=== PATIENT | female | born 1970 | race Caucasian/White ===

== ENCOUNTER 2018-06-20 12:28 | Emergency (ER) | payer MEDICARE ==
[2018-06-20 13:33] VITALS: BP 124/66
--- NOTE | 2018-06-20 14:07 | UC ---
Throat Pain/Nasal Hiro HPI - HPI Summary HPI Summary: 48-year-old woman here with a complaint of sinus pressure and runny nose sore throat and fatigue. She's been having these symptoms for more than a week. She feels like she needs to sleep all time. Denies any chest congestion. She has had some foul-smelling urine. No abdominal pain. - History of Current Complaint Chief Complaint: UCRespiratory Stated Complaint: SORE THROAT FEVER FATIGUE CONGESTION Time Seen by Provider: 06/20/18 13:50 Pain Intensity: 9 - Allergies/Home Medications Allergies/Adverse Reactions: Allergies Allergy/AdvReac Type Severity Reaction Status Date / Time No Known Allergies Allergy Verified 06/20/18 13:29 Home Medications: Home Medications NK [No Home Medications Reported] 06/20/18 [History Confirmed 06/20/18] PMH/Surg Hx/FS Hx/Imm Hx Previously Healthy: Yes - KIDNEY STONES Other Respiratory History: NO COPD - Surgical History Surgical History: Yes Surgery Procedure, Year, and Place: hysterectomy. - Family History Known Family History: Positive: Cardiac Disease Negative: Diabetes - Social History Alcohol Use: Occasionally Substance Use Type: Marijuana Substance Use Comment - Amount & Last Used: socially Smoking Status (MU): Heavy Every Day Tobacco Smoker Amount Used/How Often: 1 PPD Review of Systems Constitutional: Chills, Fatigue Skin: Negative Eyes: Negative ENT: Sore Throat, Nasal Discharge, Sinus Congestion, Sinus Pain/Tenderness Respiratory: Negative Cardiovascular: Negative Gastrointestinal: Negative Genitourinary: Other - URINE SMELLS BAD Motor: Negative Neurovascular: Negative Musculoskeletal: Negative Neurological: Negative Psychological: Negative Is Patient Immunocompromised?: No All Other Systems Reviewed And Are Negative: Yes Physical Exam Triage Information Reviewed: Yes Appearance: No Pain Distress, Well-Nourished, Ill-Appearing - MILD Vital Signs: Initial Vital Signs Temp 99.4 F 06/20/18 13:27 Pulse 73 06/20/18 13:27 Resp 15 06/20/18 13:27 BP 124/66 06/20/18 13:27 Pulse Ox 98 06/20/18 13:27 Vital Signs Reviewed: Yes Eye Exam: Normal Eyes: Positive: Conjunctiva Clear ENT: Positive: Pharyngeal erythema, Nasal congestion, Nasal drainage, TMs normal Neck exam: Normal Respiratory: Positive: Lungs clear, Normal breath sounds, No respiratory distress Cardiovascular: Positive: RRR Abdominal Exam: Normal Abdomen Description: Positive: Nontender, Soft. Negative: CVA Tenderness (R), CVA Tenderness (L) Bowel Sounds: Positive: Present Musculoskeletal Exam: Normal Musculoskeletal: Positive: Strength Intact Neurological Exam: Normal Neurological: Positive: Alert Psychological Exam: Normal Psychological: Positive: Normal Response To Family Skin Exam: Normal Throat Pain/Nasal Course/Dx - Differential Dx/Diagnosis Provider Diagnoses: SINUSITIS. UTI Discharge - Sign-Out/Discharge Documenting (check all that apply): Patient Departure All imaging exams completed and their final reports reviewed: No Studies - Discharge Plan Condition: Stable Disposition: HOME Patient Education Materials: Sinusitis (ED), Urinary Tract Infection in Women ( ED) Forms: *Work Release Referrals: [facility] [Outside] Additional Instructions: FOLLOW UP WITH YOUR DOCTOR IF NOT COMPLETELY IMPROVED. GET RECHECKED FOR ANY WORSENING OF YOUR CONDITION OR QUESTIONS OR CONCERNS. - Billing Disposition and Condition Condition: STABLE Disposition: Home - Attestation Statements Document Initiated by Scribe: No
== END 2018-06-20 14:13 | disposition home or self-care (01) ==
LOC: UCCORT 12:28
DX: J32.9 Chronic sinusitis, unspecified (principal); N39.0 Urinary tract infection, site not specified; A49.9 Bacterial infection, unspecified; F17.210 Nicotine dependence, cigarettes, uncomplicated
CPT/HCPCS: 81003; 87077; 87086; 87186; 99202; G0463

== ENCOUNTER 2019-06-07 13:29 | Emergency (ER) | payer MEDICARE ==
[2019-06-07 13:53] VITALS: BP 134/87
--- NOTE | 2019-06-07 14:21 | ED ---
Throat Pain/Nasal Congestion - HPI Summary HPI Summary: 49 yr old female with the complaint of sinus pressure, post nasal drip, yellow nasal drainage. Frontal and maxillary sinus pain. She has had fever. She is a smoker. She states she has had prior sinus infections. - History of Current Complaint Chief Complaint: UCGeneralIllness Time Seen by Provider: 06/07/19 14:13 - Allergies/Home Medications Allergies/Adverse Reactions: Allergies Allergy/AdvReac Type Severity Reaction Status Date / Time No Known Allergies Allergy Verified 06/07/19 13:50 Home Medications: Home Medications Ibuprofen TAB* [Motrin TAB* 800 MG] 800 mg PO ONCE 06/07/19 [History Confirmed 06/07/19] PMH/Surg Hx/FS Hx/Imm Hx - Surgical History Surgery Procedure, Year, and Place: hysterectomy. Infectious Disease History: No Infectious Disease History: Denies: Traveled Outside the [place] in Last 30 Days - Family History Known Family History: Positive: Cardiac Disease Negative: Diabetes - Social History Occupation: Employed Full-time Alcohol Use: Occasionally Substance Use Type: Reports: None Substance Use Comment - Amount & Last Used: socially Smoking Status (MU): Heavy Every Day Tobacco Smoker Type: Cigarettes Amount Used/How Often: 3/4 PPD Review of Systems Constitutional: Negative Positive: Nasal Discharge, Other - sinus pain Positive: Cough All Other Systems Reviewed And Are Negative: Yes Physical Exam Triage Information Reviewed: Yes Vital Signs On Initial Exam: Initial Vitals Temp Pulse Resp BP Pulse Ox 99.4 F 71 14 134/87 99 06/07/19 13:50 06/07/19 13:50 06/07/19 13:50 06/07/19 13:50 06/07/19 13:50 Vital Signs Reviewed: Yes Appearance: Positive: Well-Appearing, No Pain Distress Skin: Positive: Warm, Skin Color Reflects Adequate Perfusion Eyes: Positive: EOMI ENT: Positive: Pharyngeal erythema, Nasal congestion, Nasal drainage, TMs normal , Sinus tenderness Neck: Positive: Nontender Respiratory/Lung Sounds: Positive: Clear to Auscultation, Breath Sounds Present Cardiovascular: Positive: RRR. Negative: Murmur Abdomen Description: Negative: Distended Musculoskeletal: Positive: Strength/ROM Intact Neurological: Positive: Sensory/Motor Intact, Alert, Oriented to Person Place, Time, CN Intact II-III, Normal Gait, Speech Normal Psychiatric: Positive: Normal Diagnostics - Vital Signs Vital Signs Temp Pulse Resp BP Pulse Ox 06/07/19 13:50 99.4 F 71 14 134/87 99 - Laboratory Lab Statement: Any lab studies that have been ordered have been reviewed, and results considered in the medical decision making process. EENT Course/Dx - Course Course Of Treatment: 49 yr old with sinusitis. Rx augmentin - Diagnoses Provider Diagnoses: Bacterial sinusitis Discharge ED - Sign-Out/Discharge Documenting (check all that apply): Patient Departure All imaging exams completed and their final reports reviewed: No Studies - Discharge Plan Condition: Good Disposition: HOME Prescriptions: Amoxicillin/Clavulanate TAB* [Augmentin TAB 875*] 875 mg PO BID #20 tab Patient Education Materials: Sinusitis (ED) Referrals: No Primary Care Phys,NOPCP [Primary Care Provider] - [facility] [[facility]] - Billing Disposition and Condition Condition: GOOD Disposition: Home
== END 2019-06-07 14:28 | disposition home or self-care (01) ==
LOC: UCCORT 13:29
DX: J32.9 Chronic sinusitis, unspecified (principal); F17.210 Nicotine dependence, cigarettes, uncomplicated
CPT/HCPCS: 99212; G0463